=== PATIENT | male | born 1970 | race African-American/Black ===

== ENCOUNTER 2017-12-10 07:41 | Emergency (ER) | payer OTHER ==
[2017-12-10 08:34] VITALS: BP 140/100
[2017-12-10] MEDS ORDERED: Ibuprofen ADULT LIQ* 600 MG/30 ML UDC PO ONE (08:44)
--- NOTE | 2017-12-10 09:51 | UC ---
Throat Pain/Nasal Alo HPI - HPI Summary HPI Summary: Pt c/o sudden onset ST X 2 days. - History of Current Complaint Chief Complaint: UCGeneralIllness Stated Complaint: SORE THROAT Time Seen by Provider: 12/10/17 08:44 Hx Obtained From: Patient Onset/Duration: Sudden Onset, Lasting Days, Still Present Severity: Severe Pain Intensity: 10 Pain Scale Used: 0-10 Numeric Cough: None Associated Signs & Symptoms: Positive: Dysphagia - Epiglottits Risk Factors Epiglottis Risk Factors: Sudden Onset - Allergies/Home Medications Allergies/Adverse Reactions: Allergies Allergy/AdvReac Type Severity Reaction Status Date / Time No Known Allergies Allergy Verified 12/10/17 08:27 PMH/Surg Hx/FS Hx/Imm Hx Previously Healthy: Yes - Surgical History Surgical History: None - Family History Known Family History: Negative: Cardiac Disease, Hypertension, Diabetes - Social History Occupation: Employed Full-time Lives: With Family Alcohol Use: Occasionally Substance Use Type: None Smoking Status (MU): Heavy Every Day Tobacco Smoker Type: Cigarettes Amount Used/How Often: 1/2 PPD Length of Time of Smoking/Using Tobacco: Since Age 17 Have You Smoked in the Last Year: Yes Review of Systems Constitutional: Chills, Fatigue Skin: Negative Eyes: Negative ENT: Sore Throat Respiratory: Negative Cardiovascular: Negative Gastrointestinal: Negative Genitourinary: Negative Motor: Negative Neurovascular: Negative Musculoskeletal: Myalgia Neurological: Headache Psychological: Negative Is Patient Immunocompromised?: No All Other Systems Reviewed And Are Negative: Yes Physical Exam Triage Information Reviewed: Yes Appearance: Ill-Appearing Vital Signs: Initial Vital Signs Temp 98.1 F 12/10/17 08:26 Pulse 74 12/10/17 08:26 Resp 16 12/10/17 08:26 BP 140/100 12/10/17 08:26 Pulse Ox 100 12/10/17 08:26 Vital Signs Reviewed: Yes Eye Exam: Normal ENT: Positive: Tonsillar swelling Dental Exam: Normal Neck exam: Other Neck: Positive: Enlarged Nodes @ - submandibular Respiratory Exam: Normal Cardiovascular Exam: Normal Musculoskeletal Exam: Normal Neurological Exam: Normal Psychological Exam: Normal Skin Exam: Normal Diagnostics - Laboratory Diagnostic Studies Completed/Ordered: rapid strep: positive Throat Pain/Nasal Course/Dx - Differential Dx/Diagnosis Differential Diagnosis/HQI/PQRI: Pharyngitis, Tonsillitis Provider Diagnoses: strep throat Discharge - Sign-Out/Discharge Documenting (check all that apply): Patient Departure All imaging exams completed and their final reports reviewed: No Studies - Discharge Plan Condition: Stable Disposition: HOME Prescriptions: Amoxicillin PO (*) [Amoxicillin 400 MG/5 ML SUSP*] 10 ml PO Q12H #200 ml predniSONE TAB* [Deltasone 20 MG TAB*] 20 mg PO DAILY #4 tab Patient Education Materials: Strep Throat (ED) Referrals: [facility] [Outside] No Primary Care Phys,NOPCP [Primary Care Provider] - Additional Instructions: Please follow up with your PCP on Tuesday, 12/12. If symptoms do not improve or they worsen please go directly to the closest Emergency room. - Billing Disposition and Condition Condition: STABLE Disposition: Home
== END 2017-12-10 09:02 | disposition home or self-care (01) ==
LOC: UCCORT 07:41
DX: F17.210 Nicotine dependence, cigarettes, uncomplicated (principal); J02.0 Streptococcal pharyngitis
CPT/HCPCS: 87651; 99212; A9270-GY; G0463